=== PATIENT | female | born 1955 | race Caucasian/White ===

== ENCOUNTER → 2023-04-12 13:27 | Outpatient (REF) | payer OTHER, SELFPAY | LOC: HWCARD 13:27 | PROVIDERS: ATTENDING PHYSICIAN Pain Medicine Interventional Pain Medicine; FAMILY PHYSICIAN Family Medicine | DX: Z01.818 Encounter for other preprocedural examination (principal) | CPT/HCPCS: 93005 ==

== ENCOUNTER → 2024-06-01 13:23 | Outpatient (REF) | payer OTHER, SELFPAY | LOC: PAVMRI 13:23 | PROVIDERS: ATTENDING PHYSICIAN Physician Assistant Surgical; FAMILY PHYSICIAN Family Medicine | DX: M17.12 Unilateral primary osteoarthritis, left knee (principal); M23.92 Unspecified internal derangement of left knee | CPT/HCPCS: 73721 ==

== ENCOUNTER → 2024-12-15 12:13 | Outpatient (REF) | payer OTHER, SELFPAY | LOC: RAD 12:13 | PROVIDERS: ATTENDING PHYSICIAN Internal Medicine Gastroenterology; FAMILY PHYSICIAN Family Medicine | DX: R10.32 Left lower quadrant pain (principal) | CPT/HCPCS: 74177; Q9967 ==